=== PATIENT | male | born 1965 | race Caucasian/White ===

== ENCOUNTER 2020-02-02 03:53 | Emergency (ER) | payer MEDICAID ==
[~2020-02-02] VITALS: Ht 177.8 cm; Wt 72.0 kg
[2020-02-02 03:58] VITALS: BP 134/86
--- NOTE | 2020-02-02 04:07 | NUR ---
PER VERBAL ORDER FROM ANNA SEO, ORDER ALCAINE EYE DROPS 2 DROPS FOR THE LEFT EYE. ORDER PLACED
[2020-02-02] MEDS ORDERED: ERYT1OIN6 LEFTEYE (04:09)
[2020-02-02] MEDS ORDERED: proparacaine 0.5% ophthalmic drops 15ml LEFTEYE ONE ×2 (04:10)
== END 2020-02-02 04:22 | disposition home or self-care (01) ==
LOC: ER 03:54
DX: H00.015 Hordeolum externum left lower eyelid (principal); Z79.899 Other long term (current) drug therapy
CPT/HCPCS: 99283

== ENCOUNTER 2020-11-19 14:49 | Emergency (ER) | payer MEDICAID ==
[~2020-11-19] VITALS: Ht 177.8 cm; Wt 77.3 kg
== END 2020-11-19 15:26 | disposition home or self-care (01) ==
LOC: ER 14:50
DX: R05 Cough (principal); Z20.828 Contact with and (suspected) exposure to other viral communicable diseases; J02.9 Acute pharyngitis, unspecified
CPT/HCPCS: 36415; 87635; 99283